=== PATIENT | female | born 1945 | race Native Hawaiian/Other Pacific Islander ===

== ENCOUNTER 2021-10-25 07:01 | Emergency (ER) | payer MEDICARE, SELFPAY ==
[2021-10-25 07:02] VITALS: BP 98/66; PULSE 68; RESP 12; TEMP 36.4; O2SAT 100
--- NOTE | 2021-10-25 07:41 | EX.ED.DYSGE1 ---
HPI History of Present Illness Chief Complaint: Dizziness Informant: patient Onset/Context/Timing Onset: Today Context: Sudden Onset Timing: Intermittent Quality: Spinning Location: Head Worsened by: Nothing Relieved by: Closing her eyes Narrative Narrative: Patient presents with dizziness that began this morning. Patient states she woke up feeling dizzy. Patient states it comes and goes. Patient describes it as a spinning sensation. Patient states it is better when she closes her eyes. Patient states she feels shaky all over when this comes on. Patient admits to nausea but denies any vomiting. Patient denies any chest pain or shortness of breath. Patient denies any headaches or tinnitus. [facility] Medical History (Updated 10/25/21 @ 10:[address] Kirk Cuellar DO) Elevated cholesterol Home Medications diazepam 2 mg tablet 2 mg PO TID PRN PRN Vertigo #10 TABLETS 10/25/21 [Rx Last Taken Unknown] esomeprazole magnesium 40 mg capsule,delayed release 40 mg PO QODAY 10/25/21 [History Last Taken Unknown] lovastatin 20 mg tablet 20 mg PO QHS 10/25/21 [History Last Taken Unknown] ondansetron 4 mg disintegrating tablet 4 mg PO Q8H PRN PRN Nausea #10 tabs 10/25/21 [Rx Last Taken Unknown] Allergy/AdvReac Type Severity Reaction Status Date / Time cyclobenzaprine Allergy Upset Verified 10/25/21 07:08 [From Flexeril] Stomach Surgical History (Updated 10/25/21 @ 07:[address] Kirk Cuellar DO) Hx of arthroscopic knee surgery Social History Smoking Status: Never smoker ROS ROS ED Constitutional Constitutional ED: Denies chills or fever(s) Eyes Eyes: Denies blurry vision or change in vision ENT ENT ED: Denies rhinorrhea or sore throat Cardiovascular Cardiovascular: Denies chest pain or palpitations Respiratory/Chest Respiratory/Chest: Denies cough or dyspnea Gastrointestinal Gastrointestinal: Reports nausea; Denies vomiting Genitourinary Genitourinary ED: Denies dysuria or hematuria Musculoskeletal Musculoskeletal: Denies back pain or neck pain Integumentary Denies abscess or rash Neurologic Neurologic: Denies headache(s) or weakness Allergic/Immunologic Allergic/Immunologic ED: Denies mouth swelling or urticaria EXAM Physical Exam Const Vital Signs: 10/25/21 07:02 10/25/21 07:12 10/25/21 08:20 Temperature 97.5 F L Temperature Source Temporal Pulse Rate 68 72 Respiratory Rate 12 14 Respiratory Effort Normal Non-Labored Respiratory Pattern Normal Blood Pressure 98/66 117/62 Blood Pressure Mean 76 80 Pulse Ox 100 97 Oxygen Delivery Method Room Air Room Air 10/25/21 10:09 10/25/21 10:53 Temperature Temperature Source Pulse Rate 65 72 Respiratory Rate 14 18 Respiratory Effort Respiratory Pattern Blood Pressure 119/63 134/72 H Blood Pressure Mean 81 Pulse Ox 100 97 Oxygen Delivery Method Room Air Positive well nourished and well developed General Appearance ED: well developed HEENT Reports moist mucous membranes Eyes PERRL and EOMs intact bilaterally Eyes Narrative: There is nystagmus with right lateral gaze. Neck supple and no JVD Resp normal respiratory effort and clear to auscultation bilaterally Cardio regular rate, regular rhythm and no murmurs GI normal to inspection, nondistended, normoactive bowel sounds and non-tender Palpation: soft Extremity normal to inspection General Extremety ED: Negative for edema or tenderness General Extremity: Negative for edema Neuro oriented x3, CN's II-XII intact bilaterally and no sensory deficits noted Sensorium / Orientation: alert Motor Exam: strength 5/5 throughout Psych mental status grossly normal Skin no rashes or lesions noted MDM MDM MDM Narrative Medical decision making narrative: Patient was given a dose of meclizine and Zofran here. Patient states her dizziness is improved but is still present. Patient was given a dose of Zofran and Valium. CBC was within normal limits. Comprehensive metabolic profile shows a mild hypokalemia 3.2. CT scan of the brain was obtained. There is no acute intracranial abnormality. This was interpreted by the radiologist and reviewed by myself. Patient was advised that this is most likely a peripheral vertigo. Patient was given a prescription for Valium and Zofran. Patient was instructed to drink plenty of fluids. Patient was instructed to follow-up with her primary care physician in 5 to 7 days. Patient understood and was agreeable with the plan. All questions were answered. Lab Data Attestation: I reviewed the patient's lab results. Labs: Laboratory Results - last 24 hr 10/25/21 10/25/21 07:58 07:58 WBC 7.1 RBC 4.09 L Hgb 12.7 Hct 38.5 MCV 94.1 MCH 31.1 MCHC 33.0 RDW Std Deviation 42.8 RDW Coeff of Judi 12.4 Plt Count 220 MPV 9.3 Immature Gran % (Auto) 0.600 Neut % (Auto) 46.8 L Lymph % (Auto) 37.1 [place] % (Auto) 5.8 Eos % (Auto) 9.0 H Baso % (Auto) 0.7 Absolute Neuts (auto) 3.3 Absolute Lymphs (auto) 2.63 Nucleated RBC % 0 Sodium 142 Potassium 3.2 L Chloride 107 Carbon Dioxide 28.0 Anion Gap 7 BUN 19 H Creatinine 0.73 Estim Creat Clear Calc 38.72 Est GFR (MDRD) Af Amer 100 Est GFR (MDRD) Non-Af 83 BUN/Creatinine Ratio 26.1 H Glucose 153 H Calcium 8.7 Total Bilirubin 0.20 AST 20 ALT 26 Alkaline Phosphatase 37 L Total Protein 6.8 Albumin 3.5 Globulin 3.3 Albumin/Globulin Ratio 1.1 Radiography Diagnostic Testing: Clinical Impression(s) from Imaging Studies Brain CT 10/25/21 07:43 IMPRESSION: Chronic involutional changes of the brain. Electronically Signed: Franco Woods MD at 9:06 EDT , Discharge Plan Triage Chief Complaint: Dizziness ED Provider: Kirk Cuellar Dx/Rx/DC Orders Clinical Impression: Peripheral vertigo, Hypercholesterolemia Instructions: ED Vertigo, Unspecified Prescriptions: New diazepam [diazepam] 2 mg tablet 2 mg PO TID PRN PRN (Reason: Vertigo) Qty: 10 0RF ondansetron [ondansetron] 4 mg tablet,disintegrating 4 mg PO Q8H PRN PRN (Reason: Nausea) Qty: 10 0RF No Action lovastatin 20 mg tablet 20 mg PO QHS esomeprazole magnesium 40 mg capsule,delayed release(DR/EC) 40 mg PO QODAY Primary Care Provider: Ru Roland Referrals: Ru Roland MD [Primary Care Provider] - 3-5 Days Disposition Disposition: Home, Self Care Discharge Date/Time: 10/25/21 10:54
--- NOTE | 2021-10-25 07:43 | CT_ITS ---
STUDY: CT BRAIN WITHOUT CONTRAST REASON FOR EXAM: Female, 76 years old. Vertigo RADIATION DOSAGE (If Supplied By Facility): CTDIvol = ( 44.99 ) mGy, DLP = ( 812.98 ) mGycm TECHNIQUE: Transaxial CT imaging of the brain was performed without administration of intravenous contrast material. Individualized dose optimization techniques were used for this CT. COMPARISON: 01/13/2013 FINDINGS: Normal soft tissue structures. Normal calvarium. There is mild cerebral atrophy with widening of the extra-axial spaces and ventricular dilatation. There are areas of decreased attenuation within the white matter tracts of the supratentorial brain, consistent with microvascular disease changes. There are small punctate calcifications of the basal ganglia which are seen in the aging brain as a normal variant. Normal brainstem. Normal cerebellum. There is no intracranial hemorrhage. There are no findings of an acute ischemic infarction. Normal visualized paranasal sinuses. CT/Brain/Head without Contrast IMPRESSION: Chronic involutional changes of the brain. Electronically Signed: Franco Woods MD at 9:06 EDT ,
[2021-10-25] MEDS: 0.9% Normal Saline 1,000 ML 1000 ML IV (07:55)
[2021-10-25] MEDS: Ondansetron 4 MG/2 ML Vial IV ×2 (07:55→10:06)
[2021-10-25 08:07] LABS: Absolute Lymphocyte Count 2.63 X10^3/uL (0.83-4.51); Absolute Neutrophil Count 3.3 X10^3/uL (2.0-7.7); Basophil# 0.05 X10^3/uL; Basophil% 0.7 % (0-1); Eosinophil# 0.64 X10^3/uL; Hematocrit 38.5 % (37-47); Hemoglobin 12.7 g/dL (12.0-15.0); Lymphocyte # 2.63 X10^3/ul (0.83-4.51); Lymphocyte % 37.1 % (19-41); Mean Corpuscular Hgb 31.1 pg (27.0-32.0); Mean Corpuscular Volume 94.1 fL (81-99); Mean Platelet Vol. 9.3 fl (6.2-12.0); Monocyte# 0.41 X10^3/uL; Monocyte% 5.8 % (0-10); NRBC Flagged by Analyzer 0 % (0-5); Neutrophil # 3.32 X10^3/uL (2.7-7.7); Neutrophil % 46.8 % (47-70); Platelet Count 220 K/mm3 (150-450); RBC Distribution Width CV 12.4 % (11.6-14.6); RBC Distribution Width SD 42.8 fl (35.1-43.9); Red Blood Count 4.09 M/mm3 (4.2-5.4); White Blood Count 7.1 K/mm3 (4.4-11.0)
[2021-10-25] MEDS: Meclizine HCl 25 MG Tablet PO (08:19)
[2021-10-25 08:20] VITALS: BP 117/62; PULSE 72; RESP 14; O2SAT 97
[2021-10-25 08:23] LABS: ALB/GLOB Ratio 1.1 RATIO (0.9-2.4); AST(SGOT) 20 U/L (15-37); Alanine Aminotransfer ALT/SGPT 26 U/L (13-56); Albumin, Serum 3.5 g/dL (3.2-5.0); Alkaline Phosphatase 37 U/L (45-117); Anion Gap 7 (5-15); BUN 19 mg/dL (7-18); BUN/Creat Ratio 26.1 RATIO (10-20); Calcium,Total 8.7 mg/dL (8.5-10.1); Chloride 107 mmol/L (98-107); Creatinine, Serum 0.73 mg/dL (0.55-1.02); EST Glomerular Filtration Rate 83 mL/min (>60); Est Glom Filt Rate - Afr Amer 100 mL/min (>60); Estimated Creatinine Clearance 38.72 ml/min; Globulin 3.3 g/dL (2.2-4.2); Glucose 153 mg/dL (74-106); Potassium 3.2 mmol/L (3.5-5.1); Protein, Total 6.8 g/dL (6.4-8.2); Sodium Level 142 mmol/L (136-145)
[2021-10-25] MEDS: diazePAM 5 MG Tablet 2.5 MG PO (10:06)
[2021-10-25 10:09] VITALS: BP 119/63; PULSE 65; RESP 14; O2SAT 100
[2021-10-25 10:53] VITALS: BP 134/72; PULSE 72; RESP 18; O2SAT 97
== END 2021-10-25 10:54 | disposition home or self-care (01) ==
PROVIDERS: Emergency Provider Emergency Medicine; PCP Family Medicine; Visit Provider Emergency Medicine
DX: R42 Dizziness and giddiness (principal); E78.00 Pure hypercholesterolemia, unspecified; Z79.899 Other long term (current) drug therapy
CPT/HCPCS: 70450; 80053; 85025; 96361; 96374; 96376; 99285; J7030; A4216; J2405

== ENCOUNTER 2024-03-14 21:44 | Emergency (ER) | payer MEDICARE, SELFPAY ==
[2024-03-14 21:45] VITALS: BP 152/57; PULSE 62; RESP 18; TEMP 36.7; O2SAT 100; BMI 19.3
--- NOTE | 2024-03-14 22:12 | EX.ED.DYSGE1 ---
HPI History of Present Illness Chief Complaint: General Illness Narrative Narrative: 79-year-old female past medical history of sciatica and back pain, states that she saw her primary care provider today. They thought maybe she had a pinched nerve in her back. She used to take cyclobenzaprine, but states she had a reaction to it of upset stomach and nausea. She was given Robaxin today and took it at around 130. Approximately 5 hours later, after dinner, she states she became lightheaded, near syncopal, and dizzy. She was nauseated but did not vomit. She states she was gagging. She denies any headache. She thinks that she had a reaction to the new muscle relaxer although her primary care provider told her that she should not have the same side effects as Flexeril. No fevers or chills, no diarrhea. She feels improved. Additionally, she states that she had vertigo a few years ago, but this does not feel the same. [facility] Medical History Elevated cholesterol Home Medications ?Medication ?Instructions ?Recorded ?Last Taken ?Type diazepam 2 mg tablet 2 mg PO TID PRN PRN Vertigo #10 10/25/21 Unknown Rx TABLETS esomeprazole magnesium 40 mg 40 mg PO QODAY 10/25/21 Unknown History capsule,delayed release lovastatin 20 mg tablet 20 mg PO QHS 10/25/21 Unknown History ondansetron 4 mg disintegrating 4 mg PO Q8H PRN PRN Nausea #10 tabs 10/25/21 Unknown Rx tablet Allergy/AdvReac Type Severity Reaction Status Date / Time cyclobenzaprine (From Allergy Upset Verified 03/14/24 21:48 Flexeril) Stomach Surgical History Hx of arthroscopic knee surgery Social History Smoking Status: Never smoker ROS ROS ED ROS Narrative Constitutional: No fever, no chills. HEENT: No sore throat. No neck pain. No loss of vision. No rhinorrhea. Cardiovascular: No chest pain. No palpitations. No pedal edema. Respiratory: No cough, no shortness of breath. Abdominal: No abdominal pain. Positive nausea. No vomiting. No diarrhea. Positive gagging. Genitourinary: No dysuria. No hematuria. Musculoskeletal: No myalgias. No arthralgias. Neurologic: No headaches. Positive lightheadedness and dizziness. Skin: No rash. No change in color. EXAM Physical Exam Narrative Exam Narrative: Afebrile. Vital signs noted. HEENT: Normocephalic. Atraumatic. PERRL, EOMI. Neck soft and supple. No point tenderness or step off. Cardiovascular: Regular rate and rhythm. No murmurs, rubs, or gallops appreciated. Respiratory: No tachypnea. Lungs clear to auscultation bilaterally. Gastrointestinal: Abdomen soft, nontender, with normoactive bowel sounds. No rebound or guarding. Neurological: Awake. Alert. Nonfocal, nonlateralizing. No nystagmus. Skin: No rash. Normal color. No pallor. Musculoskeletal: No pedal edema. Full range of motion extremities. Const Vital Signs: 03/14/24 21:45 03/14/24 21:50 03/14/24 23:45 Temperature 98.0 F Temperature Source Temporal Pulse Rate 62 58 L Respiratory Rate 18 16 Respiratory Effort Normal Non-Labored Respiratory Pattern Normal Blood Pressure 152/57 H 135/55 H Blood Pressure Mean 88 81 Pulse Ox 100 100 Oxygen Delivery Method Room Air Room Air MDM MDM MDM Narrative Medical decision making narrative: Differential diagnosis includes but not limited to benign positional vertigo versus near syncope versus dehydration. I have a low suspicion for posterior circulation problem/stroke based on her history and physical. She was offered something for nausea, but declines. Additionally, she is feeling improved. I am suspecting more medication side effect. I do not feel CT of the brain is indicated. However, EKG and basic laboratory work including troponin will be obtained. EKG was obtained and interpreted by myself independently as normal sinus rhythm at 69 bpm without ectopy or acute ST changes. No STEMI. QTc normal at 439. I reviewed her laboratory work and she has a normal white count of 7.6 with hemoglobin normal at 12.9, platelet count normal at 194. Potassium slightly low at 3.4 which I think is nonspecific and not the cause of her symptoms. BUN 19 with creatinine 0.7, no dehydration. Glucose appropriately elevated at 142 anion gap normal. LFTs grossly unremarkable. High-sensitivity troponin 8. I do not feel she needs serial enzymes because she is not having chest pain and this is a 6-hour troponin. Urinalysis shows 5-10 white cells, but she is not having dysuria. I sent for culture. Upon repeat examination, she states she got up to stand at the bed and she felt dizzy. I do feel that is probably more of a positional vertigo. I do not feel she needs IV fluids. She will be given meclizine. In review of her previous medications she had been given diazepam for vertigo. She also states that she has abdominal bloating. She is not nauseated though I do not feel she needs Zofran. Given her bloating, I will obtain x-rays of the abdomen. On my individual interpretation of her x-rays, there is a nonobstructive pattern with a moderate amount of stool in the colon. I reviewed the radiology report which confirms my independent interpretation of no acute process. Patient states that she has MiraLAX at home and took it yesterday and had a bowel movement this morning. At this point in time, I do feel that she probably has more medication side effect. She confirmed that she was written for methocarbamol and not Robaxin. I do feel that these are more likely side effects given her dizziness because she states that she lifted up as well. I feel she can be discharged to follow-up. She should call her provider tomorrow and avoid the use of the medication in the future. Return instructions to the emergency department were reviewed. Disposition is discharged home in stable condition. History & Record Review Discussion w/independent historian: Patient Lab Data Attestation: I reviewed the patient's lab results. Labs: Laboratory Results - last 24 hr 03/14/24 03/14/24 22:20 22:31 WBC 7.6 RBC 4.18 L Hgb 12.9 Hct 38.2 MCV 91.4 MCH 30.9 MCHC 33.8 RDW Std Deviation 40.8 RDW Coeff of Judi 12.1 Plt Count 194 MPV 8.8 Immature Gran % (Auto) 0.300 Neut % (Auto) 61.6 Lymph % (Auto) 24.9 [place] % (Auto) 7.1 Eos % (Auto) 5.2 H Baso % (Auto) 0.9 Absolute Neuts (auto) 4.7 Absolute Lymphs (auto) 1.88 Nucleated RBC % 0 Sodium 138 Potassium 3.4 L Chloride 103 Carbon Dioxide 28.0 Anion Gap 6 BUN 19 H Creatinine 0.72 Estim Creat Clear Calc 44.70 Est GFR (MDRD) Af Amer 100 Est GFR (MDRD) Non-Af 83 BUN/Creatinine Ratio 26.2 H Glucose 142 H Calcium 8.8 Total Bilirubin 0.40 AST 21 ALT 22 Alkaline Phosphatase 45 Troponin I High Sens 8 Total Protein 7.3 Albumin 3.8 Globulin 3.5 Albumin/Globulin Ratio 1.1 Urine Color Yellow Urine Clarity Clear Urine pH 7.0 Ur Specific [place] 1.010 Urine Protein 15 H Urine Glucose (UA) Normal Urine Ketones 15 H Urine Occult Blood 10 H Urine Nitrite Negative Urine Bilirubin Negative Urine Urobilinogen Normal Ur Leukocyte Esterase 100 H Urine RBC 0-5 SEEN Urine WBC 5-10 SEEN Ur Squamous Epith Cells 0-5 SEEN Urine Bacteria 1+ Urine Mucus 0 SEEN Radiography Diagnostic Testing: Clinical Impression(s) from Imaging Studies Acute Abdomen Series 03/14/24 23:20 IMPRESSION: Negative chest and abdominal series. Electronically Signed: Kal Portillo MD at 23:47 EST , Discharge Plan Triage Chief Complaint: General Illness ED Provider: Ankur Vargas Dx/Rx/DC Orders Clinical Impression: Medication side effects, Dizziness, Nausea Instructions: ED Dizziness, Uncertain Cause, ED Drug Reaction, Other Prescriptions: No Action lovastatin 20 mg tablet 20 mg PO QHS esomeprazole magnesium 40 mg capsule,delayed release(DR/EC) 40 mg PO QODAY diazepam [diazepam] 2 mg tablet 2 mg PO TID PRN PRN (Reason: Vertigo) Qty: 10 0RF ondansetron [ondansetron] 4 mg tablet,disintegrating 4 mg PO Q8H PRN PRN (Reason: Nausea) Qty: 10 0RF Primary Care Provider: Ru Roland Referrals: Ru Roland MD [Primary Care Provider] - 1 Day Activity Restrictions/Additional Instructions: Do not take the baclofen/methocarbamol as you seem to have an adverse reaction/side effects to it. Call your provider tomorrow to see if there is something else that they can prescribe. Return with increased dizziness, new or worsening symptoms. Print Language: [place] Disposition Disposition: Home, Self Care
[2024-03-14 22:25] LABS: Absolute Lymphocyte Count 1.88 X10^3/uL (0.83-4.51); Absolute Neutrophil Count 4.7 X10^3/uL (2.0-7.7); Basophil# 0.07 X10^3/uL; Basophil% 0.9 % (0-1); Eosinophil# 0.39 X10^3/uL; Eosinophils% 5.2 % (0-5); Hematocrit 38.2 % (37-47); Hemoglobin 12.9 g/dL (12.0-15.0); Lymphocyte # 1.88 X10^3/ul (0.83-4.51); Lymphocyte % 24.9 % (19-41); Mean Corp Hgb Conc 33.8 g/dL (32-36); Mean Corpuscular Hgb 30.9 pg (27.0-32.0); Mean Corpuscular Volume 91.4 fL (81-99); Mean Platelet Vol. 8.8 fl (6.2-12.0); Monocyte# 0.54 X10^3/uL; Monocyte% 7.1 % (0-10); NRBC Flagged by Analyzer 0 % (0-5); Neutrophil # 4.66 X10^3/uL (2.7-7.7); Neutrophil % 61.6 % (47-70); Platelet Count 194 K/mm3 (150-450); RBC Distribution Width CV 12.1 % (11.6-14.6); RBC Distribution Width SD 40.8 fl (35.1-43.9); Red Blood Count 4.18 M/mm3 (4.2-5.4); White Blood Count 7.6 K/mm3 (4.4-11.0)
[2024-03-14 22:38] LABS: Mucous, Urine 0 SEEN /hpf (<or=2+)
[2024-03-14 22:43] LABS: Color, Urine Yellow (Yellow); Glucose, Dipstick Normal (Normal); Ketone-Dipstick 15 mg/dl (Negative); Leukocyte Esterase-Dipstick 100 /ul (Negative); Nitrite-Dipstick Negative (Negative); Occult Blood-Urine 10 /ul (Negative); Protein-Dipstick 15 mg/dl (Negative); Urine Bilirubin Dipstick Negative (Negative); Urine Clarity Clear (Clear); Urine Urobilinogen Normal (Normal)
[2024-03-14 22:45] LABS: ALB/GLOB Ratio 1.1 RATIO (0.9-2.4); AST(SGOT) 21 U/L (15-37); Alanine Aminotransfer ALT/SGPT 22 U/L (13-56); Albumin, Serum 3.8 g/dL (3.2-5.0); Alkaline Phosphatase 45 U/L (45-117); Anion Gap 6 (5-15); BUN 19 mg/dL (7-18); BUN/Creat Ratio 26.2 RATIO (10-20); Calcium,Total 8.8 mg/dL (8.5-10.1); Chloride 103 mmol/L (98-107); Creatinine, Serum 0.72 mg/dL (0.55-1.02); EST Glomerular Filtration Rate 83 mL/min (>60); Est Glom Filt Rate - Afr Amer 100 mL/min (>60); Globulin 3.5 g/dL (2.2-4.2); Glucose 142 mg/dL (74-106); Potassium 3.4 mmol/L (3.5-5.1); Protein, Total 7.3 g/dL (6.4-8.2); Sodium Level 138 mmol/L (136-145); Troponin-I HS 8 pg/mL (3.0-54.0)
[2024-03-14 22:57] LABS: Bacteria 1+ /hpf (None Seen); Red Blood Cells-Urine 0-5 SEEN /hpf (0-5); Squamous Epithelial Cells - UA 0-5 SEEN /hpf (5-10); White Blood Cells 5-10 SEEN /hpf (0-5)
--- NOTE | 2024-03-14 23:20 | RAD_ITS ---
INDICATION: Pain EXAMINATION/TECHNIQUE: X-RAY - XR Abdomen Series W/ Chest 1 View COMPARISON: No relevant prior comparison study available FINDINGS: --Chest: LINES/DEVICES: None. LUNGS: No consolidation, edema or effusion. No pneumothorax. MEDIASTINUM AND CARDIOVASCULAR STRUCTURES: Cardiac silhouette not enlarged. Central airways and mediastinal contour are unremarkable. BONES AND SOFT TISSUES: No acute findings. --Abdomen: BOWEL GAS PATTERN: Non-obstructive. No bowel or stomach distention. FREE AIR: None visualized. ORGANOMEGALY: Not seen. CALCIFICATIONS: No abnormal calcifications observed. BONES AND SOFT TISSUES: No acute findings. RAD/Acute Abdomen Inc Chest IMPRESSION: Negative chest and abdominal series. Electronically Signed: Kal Portillo MD at 23:47 EST ,
[2024-03-14] MEDS: Meclizine HCl 25 MG Tablet PO (23:43)
[2024-03-14 23:45] VITALS: BP 135/55; PULSE 58; RESP 16; O2SAT 100
[2024-03-15 00:15] VITALS: BP 129/69; PULSE 58; RESP 16; TEMP 36.6; O2SAT 99
== END 2024-03-15 00:16 | disposition home or self-care (01) ==
PROVIDERS: Emergency Provider Emergency Medicine; PCP Family Medicine; Referring Provider Emergency Medicine; Visit Provider Emergency Medicine
DX: R42 Dizziness and giddiness (principal); R11.0 Nausea; Z79.899 Other long term (current) drug therapy